=== PATIENT | female | born 1980 | race Caucasian/White ===

== ENCOUNTER 2019-01-29 14:51 | Emergency (ER) | payer BC ==
[~2019-01-29] VITALS: Ht 175.3 cm; Wt 82.1 kg
[~2019-01-29 14:51] MED LIST: FLOVENT HFA 1110 MCG IH; HYDROCODONE-APA1 TA1 PO; IBUPROFEN 800800 M1 PO; MAGNESIUM100 MG PO; PRILOSEC40 MG PO; PROAIR HFA8.5 GM IH
[2019-01-29] MEDS ORDERED: NEXIUM40 MG PO (15:03)
[2019-01-29] MEDS ORDERED: ZANAFLEX4 MG PO (15:04)
[2019-01-29 15:30] LABS: HEMATOCRIT 38.5 % (37.0-47.0); HEMOGLOBIN 13.1 gm/dL (12.0-15.0); MCH 31.7 pg (26.0-34.0); MCHC 34.1 g/dL (28.0-37.0); MPV 7.9 fl. (7.2-11.1); RBC 4.14 mil/uL (4.20-5.00); RDW-CV 13.7 % (10.5-14.5); WBC 10.2 thou/uL (4.0-11.0)
[2019-01-29 15:36] LABS: ANION GAP 10 mmol/L (7-16); BUN 15 mg/dL (7-18); CALCIUM 9.4 mg/dL (8.5-10.1); CHLORIDE 102 mmol/L (98-107); CO2 26 mmol/L (21-32); CREATININE 0.6 mg/dL (0.6-1.3); GLUCOSE 82 mg/dL (70-99); POTASSIUM 3.4 mmol/L (3.5-5.1); SODIUM 138 mmol/L (136-145)
[2019-01-29 15:42] LABS: INR 0.9; PROTIME 9.5 Seconds (9.20-11.50)
[2019-01-29 15:45] LABS: ALBUMIN 3.9 g/dL (3.4-5.0); ALKALINE PHOSPHATASE 48 U/L (46-116); SGOT 14 U/L (15-37); SGPT 34 U/L (30-65); TOTAL BILIRUBIN 0.1 mg/dL (<0.1-1.0); TOTAL PROTEIN 7.4 g/dL (6.4-8.2); TROPONIN-I LEVEL <0.06 ng/mL (<0.06)
[2019-01-29 16:42] VITALS: BP 128/84
--- NOTE | 2019-01-30 11:33 | EKG ---
[place] [address] ELECTROCARDIOGRAM REPORT Name: CATHY AREVALO Room: [facility]#: [id number] Admission: 01/29/19 Attend Phys: Discharge: 01/29/19 Date of : 76 Report #: [id number] THIS REPORT FOR: //name// [facility] ED Test Date: 2019-01-29 Test Time: 14:59:39 Pat Name: CATHY AREVALO Department: Room: Gender: F Pourer: : 1980 Requested By: Lisandra Wilburn Order Number: [id number] MD: Nestor Pike Measurements Intervals [place] Rate: 59 P: 39 TN: 137 QRS: 41 QRSD: 100 T: 30 QT: 405 QTc: 402 Interpretive Statements Sinus rhythm Baseline wander in lead(s) II,III,aVF,V1,V2,V3 No previous ECG available for comparison Electronically Signed On 01-30-2019 11:33:02 CDT by Nestor Pike [email or web address] <ELECTRONICALLY SIGNED> By: Nestor Pike MD, [facility] 01/30/19 1133 1459 1459 Nestro Pike MD, [facility] /EPI
== END 2019-01-29 16:41 | disposition home or self-care (01) ==
LOC: M.ERS 14:51
PROVIDERS: Personal Emergency Response Attendant
DX: I49.9 Cardiac arrhythmia, unspecified (principal); Z88.1 Allergy status to other antibiotic agents; Z88.6 Allergy status to analgesic agent

== ENCOUNTER → 2019-02-08 | Outpatient (CLI) | payer BC ==
[~2019-02-08] VITALS: Ht 172.7 cm; Wt 90.7 kg
[~2019-02-08] MED LIST changes: +NEXIUM40 MG PO; +ZANAFLEX4 MG PO
[2019-02-08 09:42] VITALS: BP 123/64
[2019-02-08 09:47] LABS: HEMATOCRIT 39.8 % (37.0-47.0); HEMOGLOBIN 13.1 gm/dL (12.0-15.0); MCH 31.4 pg (26.0-34.0); MCHC 32.9 g/dL (28.0-37.0); MCV 95.3 fL (80.0-100.0); MPV 7.9 fl. (7.2-11.1); RBC 4.18 mil/uL (4.20-5.00); RDW-CV 13.5 % (10.5-14.5); WBC 7.7 thou/uL (4.0-11.0)
[2019-02-08 09:53] LABS: CALCIUM 8.7 mg/dL (8.5-10.1); CREATININE 0.7 mg/dL (0.6-1.3); POTASSIUM 3.8 mmol/L (3.5-5.1)
--- NOTE | 2019-02-08 17:17 | EKG ---
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
--- NOTE | 2019-02-09 16:27 | CARD ---
[address] [address] CARDIAC CATH REPORT Name: CATHY AREVALO Room: [facility] Opal#: [id number] Admission: 02/08/19 Attend Phys: Jose Angel Connelly MD, F Discharge: Date of : [birth year] Report #: [id number] THIS REPORT FOR: //name// APPROVED REPORT Study performed: 02/08/2019 10:05:59 Patient Status: Out-Patient Room #: Event Personnel: Jose Angel Connelly Contract Engineer, Tamela Gamez Label Pinker, Cachorro Razo (R) Monitor, Andrew Parnell APPEALS BOARD REFEREE Scrub, Tonie Guerrero RTR Scrub Exam: Insertion of Dual Chamber Permanent Pacemaker Indications: Complete Heart Block The patient is a 39 year-old female with a history of Dizziness and vertigo. Conscious Sedation Start time: 10:48 End Time: 12:21 Fentanyl 125 mcg Versed 6 mg Implanted Devices: dual chamber MRI compatible Biotronic pacemaker and leads Procedure The patient underwent informed consent. We discussed the details of the procedure including the risks, which include, but not limited to bleeding, infection, vascular damage, cardiac perforation, and pneumothorax. She understood these risks and was willing to proceed. As such, she was brought to the EP/Cardiac Catheterization laboratory in a fasting and sedated state and prepped and draped in a sterile fashion, received IV antibiotics prior to initiation of the procedure and a venogram was performed showing patency of the left axillary vein. The patient underwent conscious sedation, with no related complications. The patient was brought to the EP/Cardiac Catheterization laboratory and the left chest and shoulder were prepped and draped in a sterile manner. During this case, Fluoroscopy and low osmolar contrast were used for imaging. The left subclavian region was infiltrated with 2% Lidocaine subcutaneous anesthesia. A transverse incision was made in the left upper chest cavity. The subcutaneous pocket was formed [place] [address] CARDIAC CATH REPORT Name: CATHY AREVALO ROHINI Room: [facility]#: [id number] Admission: 02/08/19 Attend Phys: Jose Angel Connelly MD, F Discharge: Date of : 76 Report #: [id number] venous access was achieved and an introducer sheath was inserted into the left Subclavian vein. Sheaths were positions using the modified Seldinger technique Through the introducer sheaths the atrial and ventricular lead wires were positioned in the right atrial appendage and right ventricular apex respectively. Utilizing fluoroscopic guidance, the atrial and ventricular lead wires were advanced over the wires and positioned in the right atria and right ventricle respectively. Capturing and sensing thresholds were verified. Electrode Parameters P Wave: 1.8 mv R Wave: 9.4 mv Atrial Threshold: 0.6 v @ 0.4 ms Ventricular Threshold: 0.6 v @ 0.4 ms Atrial Resistance: 526 ohm Ventricular Resistance: 877 ohm Dual Chamber The atrial and ventricular leads were then secured using 0 silk sutures. The subcutaneous pocket was irrigated with vancomycin antibiotic solution.The atrial and ventricular leads were attached to the appropriate receptacles on the pulse generator and set screws firmly tightened to insure adequate contact and stability. The lead and pulse generator were placed into the subcutaneous pocket. Sharp and sponge counts were confirmed to be correct. At this time the pocket was closed subcutaneously with a 0 Vicryl and the skin was closed with a 4.0 Vicryl. The operative site was dressed in sterile fashion with skin affix and the patient was transferred to the floor in stable condition. Complications The patient tolerated the procedure well and there were no complications associated with the procedure. Findings Specimens Removed: No Estimated Blood Loss: 5 cc Conclusion successful placement of a dual chamber pacemaker and leads. <ELECTRONICALLY SIGNED> By: Jose Angel Connelly MD, FACC 02/09/19 1626 1626 1626Datosha Connelly MD, FACC /INF
== END | disposition home or self-care (01) ==
LOC: M.CL 08:55
PROVIDERS: Internal Medicine Cardiovascular Disease
DX: I44.2 Atrioventricular block, complete (principal); J45.909 Unspecified asthma, uncomplicated; F17.210 Nicotine dependence, cigarettes, uncomplicated; Z88.8 Allergy status to other drugs, medicaments and biological substances; Z79.899 Other long term (current) drug therapy; Z98.890 Other specified postprocedural states

== ENCOUNTER 2019-02-27 13:57 | Emergency (ER) | payer BC ==
[~2019-02-27] VITALS: Ht 175.3 cm; Wt 90.7 kg
[2019-02-27 14:24] LABS: ABSOLUTE LYMPHOCYTES 2.4 thou/uL (0.8-5.3); ABSOLUTE MONOCYTES 0.7 thou/uL (0.0-1.2); ABSOLUTE NEUTROPHILS 5.7 thou/uL (1.6-8.1); BASOPHILS 0.4 %; EOSINOPHILS 0.5 %; HEMATOCRIT 38.1 % (37.0-47.0); HEMOGLOBIN 12.8 gm/dL (12.0-15.0); MCH 31.7 pg (26.0-34.0); MCHC 33.6 g/dL (28.0-37.0); MCV 94.4 fL (80.0-100.0); MONOCYTES 7.9 %; MPV 7.8 fl. (7.2-11.1); NUCLEATED RBCS 0 /100WBC; PLATELET COUNT* 383 thou/uL (150-400); POLYS 64.2 %; RBC 4.03 mil/uL (4.20-5.00); RDW-CV 13.4 % (10.5-14.5); WBC 8.9 thou/uL (4.0-11.0)
[2019-02-27 14:32] LABS: URINE BILIRUBIN NEGATIVE (Negative); URINE BLOOD TRACE (Negative); URINE CLARITY CLEAR; URINE COLOR YELLOW; URINE GLUCOSE-RANDOM NEGATIVE (Negative); URINE KETONES NEGATIVE (Negative); URINE LEUKOCYTES-REFLEX 3+ (Negative); URINE NITRITE-REFLEX NEGATIVE (Negative); URINE PROTEIN NEGATIVE (Negative); URINE UROBILINOGEN 0.2 E.U./dl (0.2-1.0)
[2019-02-27 14:32] LABS: ANION GAP 10 mmol/L (7-16); BUN 17 mg/dL (7-18); CALCIUM 8.5 mg/dL (8.5-10.1); CHLORIDE 105 mmol/L (98-107); CO2 24 mmol/L (21-32); CREATININE 0.8 mg/dL (0.6-1.3); GLUCOSE 120 mg/dL (70-99); POTASSIUM 3.9 mmol/L (3.5-5.1); SODIUM 139 mmol/L (136-145)
[2019-02-27 14:39] LABS: AMP/METHAMP Negative (Negative); BARBITURATES Negative (Negative); BENZODIAZEPINES Negative (Negative); COCAINE Negative (Negative); METHADONE Negative (Negative); OPIATES Negative (Negative); PCP Negative (Negative); THC Negative (Negative)
[2019-02-27 14:40] LABS: BACTERIA-REFLEX 1-9 Few /HPF (None Seen); CASTS None Seen /LPF (None Seen); CRYSTALS None Seen /LPF (None Seen); MUCUS 0-3 Light strn/LPF (None Seen); SQUAMOUS 0-3 Few /LPF (0-3); URINE RBC 0-2 Rare /HPF (0-2)
[2019-02-27 14:43] LABS: ALBUMIN 3.6 g/dL (3.4-5.0); ALKALINE PHOSPHATASE 56 U/L (46-116); NT-PRO BRAIN NAT PEPTIDE 135 pg/mL (<300); SGOT 17 U/L (15-37); SGPT 27 U/L (30-65); TOTAL BILIRUBIN 0.1 mg/dL (<0.1-1.0); TOTAL PROTEIN 6.7 g/dL (6.4-8.2); TROPONIN-I LEVEL <0.06 ng/mL (<0.06)
[2019-02-27 14:54] LABS: APTT 23.5 Seconds (25.0-31.3); PROTIME 10.2 Seconds (9.20-11.50)
[2019-02-27 16:49] VITALS: BP 103/66
--- NOTE | 2019-02-28 11:15 | EKG ---
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
== END 2019-02-27 16:50 | disposition home or self-care (01) ==
LOC: M.ERS 13:57
PROVIDERS: Family Medicine; Nurse Practitioner Family
DX: F41.0 Panic disorder [episodic paroxysmal anxiety] (principal); J45.909 Unspecified asthma, uncomplicated; Z88.6 Allergy status to analgesic agent; Z88.1 Allergy status to other antibiotic agents; Z79.899 Other long term (current) drug therapy